=== PATIENT | male | born 1975 | race Caucasian/White ===

== ENCOUNTER 2018-05-10 14:06 | Emergency (ER) | payer SELFPAY ==
[~2018-05-10] VITALS: Ht 172.7 cm; Wt 75.5 kg
[2018-05-10 14:12] VITALS: BP 145/77; Ht 172.7 cm; Wt 75.5 kg
[2018-05-10] MEDS ORDERED: ULTRAM50 MG PO (14:15)
[2018-05-10] MEDS ORDERED: XANAX1 MG PO (14:15)
[2018-05-10] MEDS ORDERED: GABAPENTIN100 MG PO (14:15)
[2018-05-10 16:51] LABS: APPEARANCE CLEAR (CLEAR); BILIRUBIN NEGATIVE (NEGATIVE); COLOR STRAW (YELLOW); GLUCOSE NEGATIVE (NEGATIVE); KETONE NEGATIVE (NEGATIVE); NITRITE NEGATIVE (NEGATIVE); PROTEIN NEGATIVE (NEGATIVE); SPECIFIC GRAVITY 1.005 (1.005-1.020); UROBILINOGEN NORMAL (NORMAL)
== END 2018-05-10 20:53 | disposition home or self-care (01) ==
LOC: D.ER 14:06
PROVIDERS: Family Medicine
DX: F52.32 Male orgasmic disorder (principal); F17.200 Nicotine dependence, unspecified, uncomplicated

== ENCOUNTER 2018-06-13 11:22 | Emergency (ER) | payer MEDICARE ==
[~2018-06-13 11:22] MED LIST: GABAPENTIN100 MG PO; ULTRAM50 MG PO; XANAX1 MG PO
[2018-06-13 11:39] VITALS: BP 103/052; Ht 172.7 cm
[2018-06-13] MEDS ORDERED: KEFLEX500 MG PO (13:10)
== END 2018-06-13 13:35 | disposition home or self-care (01) ==
LOC: D.ER 11:22
DX: J40 Bronchitis, not specified as acute or chronic (principal); J45.909 Unspecified asthma, uncomplicated; R05 Cough; R09.89 Other specified symptoms and signs involving the circulatory and respiratory systems; R06.2 Wheezing; F17.200 Nicotine dependence, unspecified, uncomplicated

== ENCOUNTER 2019-03-24 10:09 | Emergency (ER) | payer MEDICARE ==
[~2019-03-24 10:09] MED LIST changes: +KEFLEX500 MG PO
[2019-03-24 10:10] VITALS: Ht 172.7 cm
[2019-03-24] MEDS ORDERED: NAPROSYN500 MG PO (10:58)
[2019-03-24 11:18] VITALS: BP 139/94
== END 2019-03-24 11:19 | disposition home or self-care (01) ==
LOC: D.ER 10:09
DX: S50.312A Abrasion of left elbow, initial encounter (principal); W18.31XA Fall on same level due to stepping on an object, initial encounter; Y93.89 Activity, other specified; Y92.89 Other specified places as the place of occurrence of the external cause; S80.02XA Contusion of left knee, initial encounter; S80.01XA Contusion of right knee, initial encounter; M79.605 Pain in left leg; M79.604 Pain in right leg